=== PATIENT | male | born 1975 | race Caucasian/White ===

== ENCOUNTER 2021-01-31 08:30 | Outpatient (CLI) | payer BC, SELFPAY ==
--- NOTE | 2021-01-31 08:44 | US_ITS ---
WS: [id number] ULTRASOUND limited abdomen. HISTORY: UMBILICAL HERNIA W/O OBSTRUCTION W/O GANGRENE COMPARISON: None available. TECHNIQUE: 2-D and color Doppler imaging is submitted. Protrusion of soft tissue at the umbilicus with defect in the abdominal wall. Defect measures 1.8 cm diameter. There is herniated omental fat through the defect with a small amount of adjacent fluid. No peristalsing loops of bowel within the hernia. Omental fat herniating through the defect measures 4. 1 x 2.7 cm. US/US abdomen limited 28900 IMPRESSION: Umbilical omental fat herniation without GI tract herniation.
== END 2021-01-31 08:31 | disposition home or self-care (01) ==
PROVIDERS: PCP Nurse Practitioner Family; Visit Provider Nurse Practitioner Family
DX: K42.9 Umbilical hernia without obstruction or gangrene (principal)
CPT/HCPCS: 76705

== ENCOUNTER → 2021-08-27 14:33 | Outpatient (BNVA) | payer BC, SELFPAY | PROVIDERS: PCP Nurse Practitioner Family; Visit Provider Nurse Practitioner Family | DX: E11.9 Type 2 diabetes mellitus without complications (principal) | CPT/HCPCS: 83036 ==

== ENCOUNTER → 2022-08-20 10:40 | Outpatient (BNVA) | payer BC, SELFPAY | PROVIDERS: PCP Nurse Practitioner Family; Visit Provider Nurse Practitioner Family | DX: R21 Rash and other nonspecific skin eruption (principal); I10 Essential (primary) hypertension | CPT/HCPCS: 80053; 80061; 83036; 85025; 86003; 86008 ==